=== PATIENT | female | born 1935 | race Caucasian/White ===

== ENCOUNTER 2017-09-25 14:09 | Outpatient (CLI) | payer MEDICARE | END 2017-09-25 14:10 | disposition home or self-care (01) | LOC: BICMRI 14:09 | PROVIDERS: ATTEND Psychiatry & Neurology Neurology | DX: M47.812 Spondylosis without myelopathy or radiculopathy, cervical region (principal); R41.3 Other amnesia; I67.82 Cerebral ischemia; J32.9 Chronic sinusitis, unspecified; M48.02 Spinal stenosis, cervical region; M99.51 Intervertebral disc stenosis of neural canal of cervical region; Z98.1 Arthrodesis status | CPT/HCPCS: 70551; 72141 ==

== ENCOUNTER 2017-11-05 16:28 | Outpatient (CLI) | payer MEDICARE | END 2017-11-05 16:29 | disposition home or self-care (01) | LOC: CTENTCT 16:28 | PROVIDERS: ATTEND Otolaryngology Plastic Surgery within the Head & Neck | DX: J32.9 Chronic sinusitis, unspecified (principal) | CPT/HCPCS: 70486 ==

== ENCOUNTER 2018-12-05 10:24 | Emergency (ER) | payer MEDICARE ==
[2018-12-05] MEDS ORDERED: HYDROcodone/Acetaminophen 5/325 mg Tablet ONE (11:14)
[2018-12-05] MEDS ORDERED: Adacel (T-DAP) 0.5 ML SYRINGE ONE (11:14)
--- NOTE | 2018-12-05 12:09 | RAD ---
XR Humerus Rt 2 View STANDARD History: [Trauma. Fall.] Comparison: None. Findings: Distal humerus is intact. The shoulder is not well evaluated on this examination. Impression: Intact distal humerus.
--- NOTE | 2018-12-05 12:10 | RAD ---
XR Elbow Rt 2 View History: [Trauma. Fall.] Comparison: None. Findings: Lateral radiograph is suboptimal. Chronic dystrophic changes. No acute displaced fracture o r malalignment. No significant joint effusion. Impression: No acute fracture or malalignment.
--- NOTE | 2018-12-05 12:10 | RAD ---
XR Shoulder Rt 3 View STANDARD History: [Trauma. Fall.] Comparison: None. Findings: Mild subacromial narrowing. Moderate transfuse of the glenohumeral joint. Visualized ribs are unremarkable. No acute displaced fracture or malalignment. Impression: Chronic degenerative changes. No acute abnormality.
--- NOTE | 2018-12-05 12:11 | RAD ---
XR Wrist 3 Lt View STANDARD History: [Trauma] Comparison: None. Findings: The exam is this is left although position as right. There is widening of the scapholunate interval. Likely old distal radial fracture. Mild soft tissue swelling. Moderate vascular calcificati ons. 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 Impression: Limited examination due to positioning. Likely old injury of the wrist.
--- NOTE | 2018-12-05 12:17 | CT ---
CT brain. HISTORY: Trauma. Noncontrast enhanced CT images of brain obtained. There is a right infra orbital area of soft tissue laceration and injury. Correlate with dedicated fa cial CT. The patient is a previous right maxillary sinusitis surgical changes. The brain is unremarkable. No evidence of intracranial masses, hemorrhages, strokes or contusion seen . Ventricles are of normal size. IMPRESSION: right infraorbital soft tissue injury. Correlate with dedicated facial CT.
--- NOTE | 2018-12-05 12:28 | CT ---
CT facial bones. HISTORY: Trauma. Axial images are obtained with coronal and sagittal reconstructions. Images demonstrate a right infra orbital soft tissue laceration with extension of gas into the right inferior lumber stacker space. The patient's right maxillary sinus is hypoplastic and changes compatible with likely previous old tr auma and deformity seen. No evidence of acute facial fracture seen. IMPRESSION: Right facial soft tissue injury without evidence of acute fractures.
== END 2018-12-05 13:16 | disposition home or self-care (01) ==
LOC: ERS 10:24
DX: S40.011A Contusion of right shoulder, initial encounter (principal); S00.83XA Contusion of other part of head, initial encounter; S60.812A Abrasion of left wrist, initial encounter; S80.211A Abrasion, right knee, initial encounter; I25.10 Atherosclerotic heart disease of native coronary artery without angina pectoris; I10 Essential (primary) hypertension; F32.9 Major depressive disorder, single episode, unspecified; Z79.82 Long term (current) use of aspirin; Z79.899 Other long term (current) drug therapy; Z23 Encounter for immunization; W01.0XXA Fall on same level from slipping, tripping and stumbling without subsequent striking against object, initial encounter
CPT/HCPCS: 70450; 70486; 90471; 90715

== ENCOUNTER 2019-09-18 14:26 | Outpatient (CLI) | payer MEDICARE ==
--- NOTE | 2019-09-18 16:36 | MRI ---
MRI LUMBAR SPINE WITHOUT CONTRAST: 09/18/19 INDICATIONS: Low back pain. FINDINGS: Lumbar vertebrae maintain normal height and alignment. There are degenerative disc changes. Loss of d isc space is prominent at L3-4 and L4-5. There are osteophytes from the lumbar vertebrae, both anteri geena and posteriorly. At L1-2, a broad based disc bulge with evidence of annular fissure flattens the thecal sac. Mild face t hypertrophy. Mild central canal stenosis. At L2-3, broad based disc bulge/protrusion flattens the thecal sac. Moderate facet hypertrophy. Moder ate central canal stenosis at this level. At L3-4, mild diffuse disc bulge. There are osteophytes associated with this disc bulge which min s the thecal sac. Prominent facet hypertrophy. Severe central canal stenosis. Right foraminal stenosi s secondary to hypertrophic change. At L4-5, there is a focal central disc protrusion associated with a diffuse broad based bulge. Promin ent facet and ligamentous hypertrophy. Moderate to severe central canal stenosis. Right foraminal enc roachment due to disc osteophyte complex and facet hypertrophy. At L5-S1, mild disc bulge. Facet hypertrophy. No significant central canal stenosis. Right foraminal encroachment due to asymmetric disc and facet hypertrophy. IMPRESSION: 1. Central canal stenosis at L2-3, L3-4 and L4-5 as described above. 2. Incidentally noted is prominence of the renal collecting structures. This may be due to bila teral parapelvic cysts. Consider further evaluation with IVP. POS: [facility]
== END 2019-09-18 14:27 | disposition home or self-care (01) ==
LOC: SCSMRI 14:26
PROVIDERS: ATTEND Orthopaedic Surgery
DX: M25.551 Pain in right hip (principal); M48.061 Spinal stenosis, lumbar region without neurogenic claudication
CPT/HCPCS: 72148

== ENCOUNTER 2022-03-28 11:37 | Emergency (ER) | payer MEDICARE ==
[2022-03-28] MEDS ORDERED: Ketamine 50 MG/ML (10ML VIAL) ONE (13:42)
[2022-03-28] MEDS ORDERED: Bupivacaine 0.25% 10 ML VIAL ONE (13:47)
[2022-03-28] MEDS ORDERED: Lidocaine 1% PF 5 ML VIAL ONE ×2 (13:47→13:49)
[2022-03-28] MEDS ORDERED: Morphine 2 MG/ML VIAL ONE (14:05)
== END 2022-03-28 15:28 | disposition home or self-care (01) ==
LOC: ERS 11:37
DX: S52.591A Other fractures of lower end of right radius, initial encounter for closed fracture (principal); I25.10 Atherosclerotic heart disease of native coronary artery without angina pectoris; W07.XXXA Fall from chair, initial encounter; Z95.5 Presence of coronary angioplasty implant and graft; Z85.42 Personal history of malignant neoplasm of other parts of uterus
CPT/HCPCS: 70450; 72125; 72170; 73030; 73070; 73100; 73110; 93005; 94760; J2270; 25605; 96374; 96376; S0020